=== PATIENT | male | born 1955 | race Caucasian/White ===

== ENCOUNTER 2017-06-30 11:34 | Emergency (ER) | payer BC ==
[2017-06-30 13:11] LABS: CHLORIDE,CL 107 mmol/L (98-110); SODIUM,NA 138 mmol/L (136-146)
[2017-06-30] MEDS ORDERED: Albuterol/Ipratropium 3.0-0.5 MG/3 ML Neb Soln NEB ONE (13:30)
--- NOTE | 2017-06-30 13:36 | EDM.PDOC ---
ED HPI GENERAL MEDICAL PROBLEM - General Chief Complaint: Respiratory Problem Stated Complaint: COUGH Time Seen by Provider: 06/30/17 12:10 Source of Information: Reports: Patient History Limitations: Reports: No Limitations - History of Present Illness INITIAL COMMENTS - FREE TEXT/NARRATIVE: HISTORY AND PHYSICAL: History of present illness: [Patient comes to the emergency room complaining of cough head and chest congestion for the past 7 days. He's felt feverish and warm on and off. His cough is keeping him awake at night. He is coughing up thick green sputum and is blowing the same out of his nose. No wheezing or difficulty breathing other than the thick sputum in his chest. No abdominal pain nausea vomiting. His appetite has remained the same. No other complaints or concerns at this time. He admits to smoking 1 pack per day for many years. Does not have a local medical provider. He is accompanied to the emergency room by a friend/roommate.] Review of systems: As per history of present illness and below otherwise all systems reviewed and negative. Past medical history: As per history of present illness and as reviewed below otherwise noncontributory. Surgical history: As per history of present illness and as reviewed below otherwise noncontributory. Social history: No reported history of drug or alcohol abuse. Family history: As per history of present illness and as reviewed below otherwise noncontributory. Physical exam: HEENT: Atraumatic, normocephalic. Cerumen present in both ear canals. Oral mucous membranes are pink and moist. Tonsillar swelling erythema or exudate. Is edentulous. Neck supple, no lymphadenopathy. Lungs: Wheezing & crackles appreciated to bilateral posterior lower lung toure. Otherwise clear to auscultation. Heart: S1S2, regular rate and rhythm. Abdomen: Soft, nondistended, nontender. Negative for masses guarding or rebound. Pelvis: Stable nontender. Genitourinary: Deferred. Rectal: Deferred. Extremities: Atraumatic, ambulates without difficulty. Neurovascular unremarkable. Neuro: Awake, alert, oriented. Motor and sensory unremarkable throughout. Exam nonfocal. Diagnostics: [CBC, CMP, chest x-ray] Therapeutics: [DuoNeb] Impression: [Upper respiratory infection] Plan: [Discussed with patient that his chest x-ray is clear and without evidence of pneumonia. White count is slightly elevated at 12.07, otherwise labs are unremarkable. Prescribed azithromycin 500 mg 1 tablet daily 5 days 0 refills. DuoNeb given in the ER. Encouraged him to establish care with a local primary care provider in follow-up there. Mucinex, Robitussin when necessary. Return to ER as needed as discussed.] Definitive disposition and diagnosis as appropriate pending reevaluation and review of above. - Related Data Allergies Allergy/AdvReac Type Severity Reaction Status Date / Time No Known Allergies Allergy Verified 06/30/17 11:48 Home Meds: Home Meds Nitroglycerin [Nitrostat] 0.4 mg SL ASDIRECTED 06/30/17 [History] Past Medical History Cardiovascular History: Reports: [place], Stents Other Cardiovascular History: [place] x2, states has 2 stents but "I would not let them do the other ones" Gastrointestinal History: Reports: None - Infectious Disease History Infectious Disease History: Reports: Chicken Pox, Measles - Past Surgical History Cardiovascular Surgical History: Reports: None GI Surgical History: Reports: Appendectomy, Hernia, Abdominal Social & Family History - Family History Family Medical History: Noncontributory - Tobacco Use Smoking Status *Q: Current Every Day Smoker Years of Tobacco use: 45 Packs/Tins Daily: 1 - Caffeine Use Caffeine Use: Reports: Coffee Caffeine Use Comment: 2 pots coffee/day - Recreational Drug Use Recreational Drug Use: No Drug Use in Last 12 Months: Yes Recreational Drug Type: Reports: Marijuana/Hashish Recreational Drug Use Frequency: Socially ED ROS GENERAL - Review of Systems Review Of Systems: ROS reveals no pertinent complaints other than HPI. ED EXAM, GENERAL - Physical Exam Exam: See Below Course - Vital Signs Last Recorded V/S: Last Vital Signs Temp 98.4 F 06/30/17 11:45 Pulse 97 06/30/17 11:45 Resp 20 06/30/17 11:45 BP 123/79 06/30/17 11:45 Pulse Ox 94 L 06/30/17 11:45 - Orders/Labs/Meds Orders: Active Orders 24 hr Category Date Time Status RT Aerosol Therapy [RC] ASDIRECTED Care 06/30/17 13:30 Ordered Chest 2V [CR] Stat Exams 06/30/17 12:23 Taken Albuterol/Ipratropium [DuoNeb 3.0-0.5 MG/3 ML] Med 06/30/17 13:30 Once 3 ml NEB ONETIME ONE Labs: Laboratory Tests 06/30/17 06/30/17 Range/Units 12:39 12:39 WBC 12.07 H (4.0-11.0) K/uL RBC 4.11 L (4.50-5.90) M/uL Hgb 13.7 (13.0-17.0) g/dL Hct 39.2 (38.0-50.0) % MCV 95.4 (80.0-98.0) fL MCH 33.3 H (27.0-32.0) pg MCHC 34.9 (31.0-37.0) g/dL RDW Std Deviation 47.9 (28.0-62.0) fl RDW Coeff of Terrell 14 (11.0-15.0) % Plt Count 252 (150-400) K/uL MPV 9.90 (7.40-12.00) fL Neut % (Auto) 67.4 (48.0-80.0) % Lymph % (Auto) 22.2 (16.0-40.0) % Ness % (Auto) 7.4 (0.0-15.0) % Eos % (Auto) 2.7 (0.0-7.0) % Baso % (Auto) 0.3 (0.0-1.5) % Neut # (Auto) 8.1 H (1.4-5.7) K/uL Lymph # (Auto) 2.7 H (0.6-2.4) K/uL Ness # (Auto) 0.9 H (0.0-0.8) K/uL Eos # (Auto) 0.3 (0.0-0.7) K/uL Baso # (Auto) 0.0 (0.0-0.1) K/uL Nucleated RBC % 0.0 /100WBC Nucleated RBCs # 0 K/uL Sodium 138 (136-146) mmol/L Potassium 4.1 (3.5-5.1) mmol/L Chloride 107 (98-110) mmol/L Carbon Dioxide 23 (21-31) mmol/L BUN 13 (6.0-23.0) mg/dL Creatinine 0.8 (0.6-1.5) mg/dL Est Cr Clr Drug Dosing 91.81 mL/min Estimated GFR (MDRD) > 60.0 ml/min Glucose 87 (60-110) mg/dL Calcium 9.4 (8.8-10.8) mg/dL Total Bilirubin 0.6 (0.1-1.5) mg/dL AST 27 (5-40) IU/L ALT 25 (8-54) IU/L Alkaline Phosphatase 104 (40-150) Total Protein 7.4 (6.0-8.0) g/dL Albumin 3.7 (3.4-4.8) g/dL Globulin 3.7 H (2.0-3.5) g/dL Albumin/Globulin Ratio 1.0 L (1.3-2.8) Departure - Departure Time of Disposition: 13:40 Disposition: Home, Self-Care 01 Condition: Good Clinical Impression: URI (upper respiratory infection) - Discharge Information Referrals: PCP,None [Primary Care Provider] - Additional Instructions: The following information is given to patients seen in the emergency department who are being discharged to home. This information is to outline your options for follow-up care. We provide all patients seen in our emergency department with a follow-up referral. The need for follow-up, as well as the timing and circumstances, are variable depending upon the specifics of your emergency department visit. If you don't have a primary care physician on staff, we will provide you with a referral. We always advise you to contact your personal physician following an emergency department visit to inform them of the circumstance of the visit and for follow-up with them and/or the need for any referrals to a consulting specialist. The emergency department will also refer you to a specialist when appropriate. This referral assures that you have the opportunity for follow-up care with a specialist. All of these measure are taken in an effort to provide you with optimal care, which includes your follow-up. Under all circumstances we always encourage you to contact your private physician who remains a resource for coordinating your care. When calling for follow-up care, please make the office aware that this follow-up is from your recent emergency room visit. If for any reason you are refused follow-up, please contact the [facility] emergency department at and asked to speak to the emergency department charge nurse. [address] [address] Establish care with a local PCP at the clinic listed above and follow-up there in 2-3 days. Take Mucinex WITHOUT decongestant and Robitussin as needed for cough. Return to ER as needed as discussed. - My Orders Last 24 Hours: My Active Orders 06/30/17 12:23 Chest 2V [CR] Stat 06/30/17 13:30 RT Aerosol Therapy [RC] ASDIRECTED Albuterol/Ipratropium [DuoNeb 3.0-0.5 MG/3 ML] 3 ml NEB ONETIME ONE - Assessment/Plan Last 24 Hours: My Active Orders 06/30/17 12:23 Chest 2V [CR] Stat 06/30/17 13:30 RT Aerosol Therapy [RC] ASDIRECTED Albuterol/Ipratropium [DuoNeb 3.0-0.5 MG/3 ML] 3 ml NEB ONETIME ONE
[2017-06-30 13:56] VITALS: BP 135/78
--- NOTE | 2017-07-01 10:55 | CR ---
EXAM DATE: 06/30/17 PATIENT'S AGE: 62 Patient: RIANA FAYE Facility: [place], [place] Site . Site : 1955 Study: XRay Chest [id number] 1:12:15 PM Ordering Physician: Doctor Sutherland Final Report: CHEST 2 VIEWS INDICATION: Shortness of breath. Chest pain. IMPRESSION: Normal heart size and vascular pattern. Lungs are clear. No pneumothorax or pleural abnormality. Dictated by Servando Rivera MD @ Jun 30 2017 1:22PM (Electronic Signature) Report Signed by Proxy. SHWETHA
== END 2017-06-30 13:54 | disposition home or self-care (01) ==
LOC: MW.ED 11:34
DX: J06.9 Acute upper respiratory infection, unspecified (principal); F17.210 Nicotine dependence, cigarettes, uncomplicated
CPT/HCPCS: 36415; 71020; 71020-26; 80053; 85025; 94640; 99282; 99284-25

== ENCOUNTER 2018-09-16 13:31 | Emergency (ER) | payer OTHER, BC ==
[2018-09-16] MEDS ORDERED: Diphtheria,Pertussis(Acell),Tetanus Vaccine 0.5 ML Syringe IM ONE (13:34)
[2018-09-16 13:47] VITALS: BP 132/99
--- NOTE | 2018-09-16 13:48 | EDM.PDOC ---
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 Past medical history: As per history of present illness and as reviewed below otherwise noncontributory. Surgical history: As per history of present illness and as reviewed below otherwise noncontributory. Social history: No reported history of drug or alcohol abuse. Family history: As per history of present illness and as reviewed below otherwise noncontributory. Physical exam: HEENT: Atraumatic, normocephalic, pupils reactive, negative for conjunctival pallor or scleral icterus, mucous membranes moist, throat clear, neck supple, nontender, trachea midline. Lungs: Clear to auscultation, breath sounds equal bilaterally, chest nontender. Heart: S1S2, regular, negative for clicks, rubs, or JVD. Abdomen: Soft, nondistended, nontender. Negative for masses or hepatosplenomegaly. Negative for costovertebral tenderness. Pelvis: Stable nontender. Genitourinary: Deferred. Rectal: Deferred. Extremities: Atraumatic, negative for cords or calf pain. Neurovascular unremarkable. Neuro: Awake, alert, oriented. Cranial nerves II through XII unremarkable. Cerebellum unremarkable. Motor and sensory unremarkable throughout. Exam nonfocal. Diagnostics: []The medical Therapeutics: []T dap lidocaine Wound cleansed and explored Keflex 500 by mouth twice a day #4-0 Prolene interrupted #2 sutures fourth digit 1 cm rashaad or 0 Prolene interrupted #4 sutures third digit interrupted 2 cm rashaad Impression: []Laceration 3 cm simple linear laceration Definitive disposition and diagnosis as appropriate pending reevaluation and review of above. right hand Pain Score (Numeric/FACES): 4 - Related Data Allergies Allergy/AdvReac Type Severity Reaction Status Date / Time No Known Allergies Allergy Verified 09/16/18 13:43 Home Meds: Home Meds Nitroglycerin [Nitrostat] 0.4 mg SL ASDIRECTED 06/30/17 [History] Past Medical History Cardiovascular History: Reports: [place], Stents Other Cardiovascular History: [place] x2, states has 2 stents but "I would not let them do the other ones" Gastrointestinal History: Reports: None - Infectious Disease History Infectious Disease History: Reports: Chicken Pox, Measles - Past Surgical History Cardiovascular Surgical History: Reports: None GI Surgical History: Reports: Appendectomy, Hernia, Abdominal Social & Family History - Family History Family Medical History: Noncontributory - Caffeine Use Caffeine Use: Reports: Coffee Caffeine Use Comment: 2 pots coffee/day ED ROS GENERAL - Review of Systems Review Of Systems: See Below ED EXAM, SKIN/RASH Exam: See Below Course - Vital Signs Last Recorded V/S: Last Vital Signs Temp 97.4 F 09/16/18 13:44 Pulse 102 H 09/16/18 13:44 Resp 18 09/16/18 13:44 BP 132/99 H 09/16/18 13:44 Pulse Ox 98 09/16/18 13:44 - Orders/Labs/Meds Orders: Active Orders 24 hr Category Date Time Status Vaccines to be Administered [RC] PER UNIT ROUTINE Care 09/16/18 13:34 Active Meds: Medications Discontinued Medications Generic Name Dose Route Start Last Admin Trade Name Rima PRN Reason Stop Dose Admin Diphtheria/Tetanus/Acell Pertussis 0.5 ml 09/16/18 13:34 09/16/18 14:08 Adacel IM 09/16/18 13:35 0.5 ml .ONCE ONE Administration Lidocaine HCl 10 ml 09/16/18 13:34 Xylocaine-Mpf 1% INJECT 09/16/18 13:35 ONETIME ONE Departure - Departure Time of Disposition: 14:34 Disposition: Home, Self-Care 01 Condition: Good Clinical Impression: Laceration - Discharge Information Referrals: PCP,None [Primary Care Provider] - Forms: ED Department Discharge Additional Instructions: Tender wound care instructions Keep wound clean and dry for 48 hour Tube dressing third digit Sutures out in 10 days Medication as prescribed The following information is given to patients seen in the emergency department who are being discharged to home. This information is to outline your options for follow-up care. We provide all patients seen in our emergency department with a follow-up referral. The need for follow-up, as well as the timing and circumstances, are variable depending upon the specifics of your emergency department visit. If you don't have a primary care physician on staff, we will provide you with a referral. We always advise you to contact your personal physician following an emergency department visit to inform them of the circumstance of the visit and for follow-up with them and/or the need for any referrals to a consulting specialist. The emergency department will also refer you to a specialist when appropriate. This referral assures that you have the opportunity for follow-up care with a specialist. All of these measure are taken in an effort to provide you with optimal care, which includes your follow-up. Under all circumstances we always encourage you to contact your private physician who remains a resource for coordinating your care. When calling for follow-up care, please make the office aware that this follow-up is from your recent emergency room visit. If for any reason you are refused follow-up, please contact the [facility] emergency department at and asked to speak to the emergency department charge nurse. - My Orders Last 24 Hours: My Active Orders 09/16/18 13:34 Vaccines to be Administered [RC] PER UNIT ROUTINE - Assessment/Plan Last 24 Hours: My Active Orders 09/16/18 13:34 Vaccines to be Administered [RC] PER UNIT ROUTINE
== END 2018-09-16 15:01 | disposition home or self-care (01) ==
LOC: MW.ED 13:31
DX: S61.212A Laceration without foreign body of right middle finger without damage to nail, initial encounter (principal); S61.214A Laceration without foreign body of right ring finger without damage to nail, initial encounter; I25.2 Old myocardial infarction; Z95.5 Presence of coronary angioplasty implant and graft; W27.0XXA Contact with workbench tool, initial encounter; Z23 Encounter for immunization
CPT/HCPCS: 90471; 90715; 99282-25

== ENCOUNTER 2020-03-04 08:17 | Emergency (ER) | payer BC, OTHER ==
--- NOTE | 2020-03-04 08:56 | EDM.PDOC ---
<Jamie Miller - Last Filed: 03/04/20 09:28> ED HPI GENERAL MEDICAL PROBLEM - General Chief Complaint: Lower Extremity Injury/Pain Stated Complaint: LT LEG PAIN Time Seen by Provider: 03/04/20 08:45 Source of Information: Reports: Patient History Limitations: Reports: No Limitations - History of Present Illness INITIAL COMMENTS - FREE TEXT/NARRATIVE: 64-year-old male with significant past medical history of coronary arteries status post stent placement, noncompliant with anticoagulation x 2-years; (patient unsure which anticoagulation patient was supposed to be on x2 years/stopped secondary to cost); presenting this morning with left lower extremity pain with radiculopathy from left hip down to left lower extremity. Patient states that he has been dealing with this pain for 2 to 3 days however does not notice any restriction in his ambulation, fever, chills, body aches, chest pain, palpitation, shortness of breath. Does endorse 1 pack/day of cigarette smoking. Denies any prolonged immobilizations as well. left leg Pain Score (Numeric/FACES): 8 - Related Data Allergies Allergy/AdvReac Type Severity Reaction Status Date / Time No Known Allergies Allergy Verified 03/04/20 08:29 Home Meds: Home Meds methylPREDNISolone [Medrol] 4 mg PO DAILY 6 Days #1 tab.ds.pk 03/04/20 [Rx] Past Medical History HEENT History: Reports: None Cardiovascular History: Reports: [place], Stents Other Cardiovascular History: [place] x2, states has 2 stents but "I would not let them do the other ones" Respiratory History: Reports: None Gastrointestinal History: Reports: None Genitourinary History: Reports: None Musculoskeletal History: Reports: None Neurological History: Reports: None Psychiatric History: Reports: None Endocrine/Metabolic History: Reports: None Hematologic History: Reports: None Immunologic History: Reports: None Oncologic (Cancer) History: Reports: None Dermatologic History: Reports: None - Infectious Disease History Infectious Disease History: Reports: Chicken Pox, Measles, Shingles - Past Surgical History Head Surgeries/Procedures: Reports: None HEENT Surgical History: Reports: None Cardiovascular Surgical History: Reports: None Respiratory Surgical History: Reports: None GI Surgical History: Reports: Appendectomy, Hernia, Abdominal Male Surgical History: Reports: None Endocrine Surgical History: Reports: None Neurological Surgical History: Reports: None Musculoskeletal Surgical History: Reports: None Oncologic Surgical History: Reports: None Dermatological Surgical History: Reports: None Social & Family History - Family History Family Medical History: Noncontributory - Tobacco Use Smoking Status *Q: Current Every Day Smoker Years of Tobacco use: 50 Packs/Tins Daily: 1 - Caffeine Use Caffeine Use: Reports: Coffee Caffeine Use Comment: 2 pots coffee/day - Recreational Drug Use Recreational Drug Use: No Review of Systems - Review of Systems Review Of Systems: See Below Constitutional: Reports: No Symptoms Eyes: Reports: No Symptoms Ears: Reports: No Symptoms Nose: Reports: No Symptoms Mouth/Throat: Reports: No Symptoms Respiratory: Denies: Shortness of Breath, Wheezing, Pleuritic Chest Pain, Cough, Hemoptysis Cardiovascular: Denies: Chest Pain, Palpitations GI/Abdominal: Denies: Abdominal Pain, Constipation, Diarrhea, Nausea, Vomiting Musculoskeletal: Reports: Leg Pain Skin: Denies: Rash Neurological: Denies: Confusion, Dizziness, Headache Psychiatric: Denies: Confusion ED EXAM, GENERAL - Physical Exam Exam: See Below Exam Limited By: No Limitations General Appearance: Alert, No Apparent Distress Ears: Normal Canal Nose: Normal Inspection Throat/Mouth: Normal Oropharynx Head: Atraumatic, Normocephalic Neck: Supple, Non-Tender Respiratory/Chest: No Respiratory Distress, Lungs Clear, Normal Breath Sounds Cardiovascular: Regular Rate, Rhythm, No Edema GI/Abdominal: Soft, Non-Tender Back Exam: Normal Inspection, Full Range of Motion. No: Decreased Range of Motion, Muscle Spasm, Paraspinal Tenderness, Vertebral Tenderness Extremities: Other (rradiculopathy of left leg reproduced w. straight leg exam. posterior calf tenderness; +homans sign ...no calf swelling noted...mild vesicualr type lesion over left malleouls ...minimal tenderness ) Neurological: Alert, Oriented, Normal Gait, No Motor/Sensory Deficits Skin Exam: Other (left malleoulus: lesion; 3-4 vesuicl;es; roofed; ) Departure - Departure Time of Disposition: 09:42 Disposition: Home, Self-Care 01 Clinical Impression: Sciatica of left side - Discharge Information Prescriptions: methylPREDNISolone [Medrol] 4 mg PO DAILY 6 Days #1 tab.ds.pk Instructions: Sciatica, [id number] Referrals: PCP,None [Primary Care Provider] - Forms: ED Department Discharge Additional Instructions: Follow up with your PCP. If pain changes , worsens and or persists; [place] return to the ED Inquire about which medication you were on before; restart your aspirin 81 mg daily in the meantime The following information is given to patients seen in the emergency department who are being discharged to home. This information is to outline your options for follow-up care. We provide all patients seen in our emergency department with a follow-up referral. The need for follow-up, as well as the timing and circumstances, are variable depending upon the specifics of your emergency department visit. If you don't have a primary care physician on staff, we will provide you with a referral. We always advise you to contact your personal physician following an emergency department visit to inform them of the circumstance of the visit and for follow-up with them and/or the need for any referrals to a consulting specialist. The emergency department will also refer you to a specialist when appropriate. This referral assures that you have the opportunity for follow-up care with a specialist. All of these measure are taken in an effort to provide you with optimal care, which includes your follow-up. Under all circumstances we always encourage you to contact your private physician who remains a resource for coordinating your care. When calling for follow-up care, please make the office aware that this follow-up is from your recent emergency room visit. If for any reason you are refused follow-up, please contact the [facility] Emergency Department at and asked to speak to the emergency department charge nurse. [facility] [address] [place] [address] [id number] [address] [address] Sepsis Event Note (ED) - Evaluation Sepsis Screening Result: No Definite Risk <Nick Rodriguez - Last Filed: 03/04/20 10:23> Course - Vital Signs Text/Narrative:: Patient presents the ED with radicular pain running down his leg on exam there is no saddle anesthesia great toe strength are normal. He had a negative ultrasound due to calf pain I agree with the resident's note and management of the case. Last Recorded V/S: Last Vital Signs Temp 36.4 C 03/04/20 08:29 Pulse 88 03/04/20 08:29 Resp 18 03/04/20 08:29 BP 127/89 03/04/20 08:29 Pulse Ox 98 03/04/20 08:29 - Orders/Labs/Meds Orders: Active Orders 24 hr Category Date Time Status Venous Doppler Lwr Ext Lt [US] Stat Exams 03/04/20 08:38 Taken Sepsis Event Note (ED) - Focused Exam Vital Signs: Vital Signs Temp Pulse Resp BP Pulse Ox 03/04/20 08:29 36.4 C 88 18 127/89 98
[2020-03-04 10:31] VITALS: BP 136/75; PULSE 76
--- NOTE | 2020-03-04 10:49 | US ---
Left lower extremity deep venous ultrasound: Duplex and color Doppler evaluation was obtained the left common femoral, superficial femoral, popliteal, posterior tibial, peroneal and anterior tibial veins Findings: Normal compression and augmentation is seen. Impression: 1. No evidence of deep venous thrombosis within the left lower extremity. Diagnostic code #1 This report was dictated in MDT
== END 2020-03-04 09:45 | disposition home or self-care (01) ==
LOC: MW.ED 08:17
DX: M54.32 Sciatica, left side (principal); F17.210 Nicotine dependence, cigarettes, uncomplicated; I25.2 Old myocardial infarction; Z95.5 Presence of coronary angioplasty implant and graft
CPT/HCPCS: 93971-26-LT; 93971-LT; 99283-25

== ENCOUNTER 2021-04-20 10:05 | Emergency (ER) | payer OTHER ==
[2021-04-20 10:45] VITALS: BP 130/97
[2021-04-20] MEDS ORDERED: Bacitracin Oint 1 GM U/D Packet TOP ONE (11:02)
--- NOTE | 2021-04-20 11:08 | EDM.PDOC ---
ED HPI GENERAL MEDICAL PROBLEM - General Chief Complaint: Upper Extremity Injury/Pain Stated Complaint: LFT ARM HURT Time Seen by Provider: 04/20/21 10:08 Source of Information: Reports: Patient History Limitations: Reports: No Limitations - History of Present Illness INITIAL COMMENTS - FREE TEXT/NARRATIVE: HISTORY AND PHYSICAL: History of present illness: Patient is a 66-year-old male who presents emergency room today with concern of possible infection of the wound that he had occurred approximately a week and a half ago. Patient states that he was working up in a ceiling when the ceiling duct fell onto his left forearm. Patient states this occurred a week and a half ago. Patient states that since then, he has continued to have an open wound of his left forearm and started noticing over the past 1 to 2 days, he has had more drainage on his Band-Aid and feels as if it is not healing and is getting more painful and possibly infected. Patient states that he is up-to-date on tetanus within 5 years. Patient denies any other symptoms or concerns. Patient denies fever, chills, chest pain, shortness of breath, or cough. Denies headache, neck stiff ness, change in vision, syncope, or near syncope. Denies nausea, vomiting, abdominal pain, diarrhea, constipation, or dysuria. Has not noted any blood in urine or stool. Patient has been eating and drinking appropri ately. Review of systems: As per history of present illness and below otherwise all systems reviewed and negative. Past medical history: As per history of present illness and as reviewed below otherwise noncontributory. Surgical history: As per history of present illness and as reviewed below otherwise noncontributory. Social history: See social history for further information Family history: As per history of present illness and as reviewed below otherwise noncontributory. Physical exam: General: Patient is alert, oriented, and in no acute distress. Patient sitting comfortably on exam table. Vitals stable and reviewed by me HEENT: Atraumatic, normocephalic, pupils equal and reactive bilaterally, negative for conjunctival pallor or scleral icterus, mucous membranes moist, TMs normal bilaterally, throat clear, neck supple, nontender, trachea midline. No drooling or trismus noted. No meningeal signs. No hot potato voice noted. Lungs: Clear to auscultation, breath sounds equal bilaterally, chest nontender. Heart: S1S2, regular rate and rhythm without overt murmur Abdomen: Soft, nondistended, nontender. Negative for masses or hepatosplenomegaly. Negative for costovertebral tenderness. Pelvis: Stable nontender. Genitourinary: Deferred. Rectal: Deferred. Skin: Intact, warm, dry. No lesions or rashes noted. Extremities: There are 2 parallel wound abrasions of the left forearm that is approximately 4cm by 2 cm with granulosus tissue within the wound without bleeding. Edges of wound have mild erythema / early cellulitis. Patient does have full range of motion of the complete left upper extremity without pain or difficulty. Radial pulses grossly intact to left upper extremity with capillary refill less than 2 seconds. Intact sensation light and deep touch of the c omplete left upper extremity. Otherwise, Atraumatic, negative for cords or calf pain. Neurovascular unremarkable. Neuro: Awake, alert, oriented. Cranial nerves II through XII unremarkable. Cerebellum unremarkable. Motor and sensory unremarkable throughout. Exam nonfocal. Notes: Signs and symptoms that were prompt return to the ED thoroughly discussed with patient. Discussed importance for follow-up with a primary care provider. Voices understanding and is agreeable to plan of care. Denies any further questions or concerns at this time. Diagnostics: None Therapeutics: Bacitracin sterile dressing Prescription: Keflex Impression: Wound infection, left forearm Plan: 1. Take medication as prescribed. You can alternate ibuprofen and Tylenol as directed for pain and discomfort. 2. Perform wound dressing changes as discussed. Clean the area with mild soap and water twice daily. 3. Follow-up with a primary care provider as discussed. Return to the ED as needed and as discussed. 4. Monitor for signs of improving versus worsening infection as discussed. Definitive disposition and diagnosis as appropriate pending reevaluation and review of above. 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 Respiratory History: Reports: None Gastrointestinal History: Reports: None Genitourinary History: Reports: None Musculoskeletal History: Reports: None Neurological History: Reports: None Psychiatric History: Reports: None Endocrine/Metabolic History: Reports: None Hematologic History: Reports: None Immunologic History: Reports: None Oncologic (Cancer) History: Reports: None Dermatologic History: Reports: None - Infectious Disease History Infectious Disease History: Reports: Chicken Pox, Measles, Shingles - Past Surgical History Head Surgeries/Procedures: Reports: None HEENT Surgical History: Reports: None Cardiovascular Surgical History: Reports: None Respiratory Surgical History: Reports: None GI Surgical History: Reports: Appendectomy, Hernia, Abdominal Male Surgical History: Reports: None Endocrine Surgical History: Reports: None Neurological Surgical History: Reports: None Musculoskeletal Surgical History: Reports: None Oncologic Surgical History: Reports: None Dermatological Surgical History: Reports: None Social & Family History - Family History Family Medical History: No Pertinent Family History - Tobacco Use Tobacco Use Status *Q: Current Every Day Tobacco User Years of Tobacco use: 50 Packs/Tins Daily: 0.5 - Caffeine Use Caffeine Use: Reports: None Caffeine Use Comment: 2 pots coffee/day - Recreational Drug Use Recreational Drug Use: Yes Recreational Drug Type: Reports: Marijuana/Hashish Recreational Drug Use Frequency: Rarely Review of Systems - Review of Systems Review Of Systems: Comprehensive ROS is negative, except as noted in HPI. ED EXAM, GENERAL - Physical Exam Exam: See Below (See dictation) Course - Vital Signs Last Recorded V/S: Last Vital Signs Temp 96.8 F L 04/20/21 10:36 Pulse 93 04/20/21 10:36 Resp 16 04/20/21 10:36 BP 130/97 H 04/20/21 10:36 Pulse Ox 95 04/20/21 10:36 - Orders/Labs/Meds Meds: Medications Discontinued Medications Generic Name Dose Route Start Last Admin Trade Name Freq PRN Reason Stop Dose Admin Bacitracin 1 dose 04/20/21 11:02 04/20/21 11:07 Bacitracin Oint 1 Gm U/D Packet TOP 04/20/21 11:03 1 dose ONETIME ONE Administration Departure - Departure Time of Disposition: 11:18 Disposition: Home, Self-Care 01 Clinical Impression: Wound infection - Discharge Information Prescriptions: cephALEXin [Keflex] 500 mg PO Q8H 10 Days #30 cap Instructions: Wound Infection, [id number] Referrals: PCP,None [Primary Care Provider] - Forms: ED Department Discharge Additional Instructions: The following information is given to patients seen in the emergency department who are being discharged to home. This information is to outline your options for follow-up care. We provide all patients seen in our emergency department with a follow-up referral. The need for follow-up, as well as the timing and circumstances, are variable depending upon the specifics of your emergency department visit. If you don't have a primary care physician on staff, we will provide you with a referral. We always advise you to contact your personal physician following an emergency department visit to inform them of the circumstance of the visit and for follow-up with them and/or the need for any referrals to a consulting specialist. The emergency department will also refer you to a specialist when appropriate. This referral assures that you have the opportunity for follow-up care with a specialist. All of these measure are taken in an effort to provide you with optimal care, which includes your follow-up. Under all circumstances we always encourage you to contact your private phys ician who remains a resource for coordinating your care. When calling for follow-up care, please make the office aware that this follow-up is from your recent emergency room visit. If for any reason you are refused follow-up, please contact the [facility] Emergency Department at and asked to speak to the emergency department charge nurse. [facility] [address] [place] [address] [place] [address] 1. Take medication as prescribed. You can alternate ibuprofen and Tylenol as directed for pain and discomfort. 2. Perform wound dressing changes as discussed. Clean the area with mild soap and water twice daily. 3. Follow-up with a primary care provider as discussed. Return to the ED as needed and as discussed. 4. Monitor for signs of improving versus worsening infection as discussed. Sepsis Event Note (ED) - Evaluation Sepsis Screening Result: No Definite Risk - Focused Exam Vital Signs: Vital Signs Temp Pulse Resp BP Pulse Ox 04/20/21 10:36 96.8 F L 93 16 130/97 H 95
[2021-04-20 11:17] VITALS: PULSE 82
== END 2021-04-20 11:17 | disposition home or self-care (01) ==
LOC: MW.ED 10:05
DX: S50.812A Abrasion of left forearm, initial encounter (principal); L08.9 Local infection of the skin and subcutaneous tissue, unspecified; W20.8XXA Other cause of strike by thrown, projected or falling object, initial encounter
CPT/HCPCS: 99283

== ENCOUNTER 2021-12-15 10:58 | Emergency (ER) | payer SELFPAY ==
[2021-12-15] MEDS ORDERED: Sodium Chloride 0.9% 2.5 ML Syringe FLUSH PRN (11:05)
[2021-12-15] MEDS ORDERED: Sodium Chloride 0.9% 10 ML Syringe FLUSH PRN (11:05)
[2021-12-15] MEDS ORDERED: methylPREDNISolone Sodium Succinate 125 MG/2 ML SDV IVPUSH ONE (11:05)
[2021-12-15] MEDS ORDERED: Albuterol/Ipratropium 3.0-0.5 MG/3 ML Neb Soln NEB ONE (11:05)
[2021-12-15 11:44] LABS: BLOOD UREA NITROGEN,BUN 15 mg/dL (7.0-18.0); CARBON DIOXIDE,CO2 24.9 mmol/L (21.0-32.0); CHLORIDE,CL 102 mmol/L (98-107); GLUCOSE RANDOM 89 mg/dL (74-106); SODIUM,NA 136 mmol/L (136-148)
[2021-12-15 13:49] LABS: CORONAVIRUS COVID-19 NAA NEGATIVE (NEGATIVE); INFLUENZA A NAA NEGATIVE (NEGATIVE); INFLUENZA B NAA NEGATIVE (NEGATIVE)
[2021-12-15] MEDS ORDERED: Azithromycin 250 MG Tab PO ONE (15:09)
[2021-12-15 16:32] VITALS: BP 141/88; PULSE 86
== END 2021-12-15 16:10 | disposition home or self-care (01) ==
LOC: MW.ED 10:58
DX: J20.9 Acute bronchitis, unspecified (principal); Z20.822 Contact with and (suspected) exposure to COVID-19
CPT/HCPCS: 0240U; 36415; 71046; 80053; 83880; 84484; 85025; 93005; 96374; 99285; A9270; J2930; J3490; J7620-GY

== ENCOUNTER 2021-12-26 08:57 | Emergency (ER) | payer SELFPAY ==
[2021-12-26] MEDS ORDERED: Heparin Sodium 5,000 Units/ML Vial IVPUSH ONE (09:05)
[2021-12-26] MEDS ORDERED: Heparin Sodium/0.45% NaCl 500 ML ONE (09:07)
[2021-12-26] MEDS ORDERED: Clopidogrel 75 MG Tab ONE (09:07)
[2021-12-26] MEDS ORDERED: Heparin Sodium 5,000 Units/ML Vial ONE (09:07)
[2021-12-26] MEDS ORDERED: Clopidogrel 75 MG Tab PO STA (09:07)
[2021-12-26] MEDS ORDERED: Tenecteplase 50 MG Kit ONE (09:08)
[2021-12-26] MEDS ORDERED: Tenecteplase 50 MG Kit IV STA (09:10)
[2021-12-26] MEDS ORDERED: Heparin Sodium/0.45% NaCl 500 ML IV SCH (09:15)
[2021-12-26] MEDS ORDERED: Morphine 4 MG/ML VIAL IVPUSH ONE (09:29)
[2021-12-26] MEDS ORDERED: Ondansetron 4 MG/2 ML SDV IVPUSH ONE (09:29)
[2021-12-26] MEDS ORDERED: Ondansetron 4 MG/2 ML SDV ONE (09:30)
[2021-12-26] MEDS ORDERED: Morphine 4 MG/ML VIAL ONE (09:30)
[2021-12-26 09:50] VITALS: BP 141/91; PULSE 72
[2021-12-26 10:12] LABS: CORONAVIRUS COVID-19 NAA NEGATIVE (NEGATIVE); INFLUENZA A NAA NEGATIVE (NEGATIVE); INFLUENZA B NAA NEGATIVE (NEGATIVE)
[2021-12-26 10:16] LABS: CARBON DIOXIDE,CO2 23.8 mmol/L (21.0-32.0); CHLORIDE,CL 100 mmol/L (98-107); GLUCOSE RANDOM 126 mg/dL (74-106); POTASSIUM,K 3.8 mmol/L (3.5-5.1); SODIUM,NA 135 mmol/L (136-148)
[2021-12-26 10:21] LABS: BLOOD UREA NITROGEN,BUN 16 mg/dL (7.0-18.0)
== END 2021-12-26 09:59 ==
LOC: MW.ED 08:57
DX: I21.19 ST elevation (STEMI) myocardial infarction involving other coronary artery of inferior wall (principal); Z79.899 Other long term (current) drug therapy; Z90.49 Acquired absence of other specified parts of digestive tract; Z20.822 Contact with and (suspected) exposure to COVID-19
CPT/HCPCS: 0240U; 36415; 51702; 71045; 80053; 83735; 84484; 85025; 85610; 85730; 92977; 93005; 96365; 96375; 96376; 99285; A9270; J1644; J2270; J2405; J3101; 93010